=== PATIENT | female | born 1970 | race African-American/Black ===

== ENCOUNTER 2018-12-28 09:43 | Outpatient (CLI) | payer BC, OTHER ==
--- NOTE | 2018-12-28 12:40 | ULT ---
LEFT BREAST ULTRASOUND: HISTORY: Mass noted on screening mammography. COMPARISON: None. TECHNIQUE: Targeted sonographic imaging of the left breast is performed at the 9 o'clock position. Static image s were reviewed. After reading the static images, real-time imaging was performed in the presence of the radiologist. FINDINGS: Static and real-time images demonstrate a solid mass with a slight lobulation, measuring 0.8 x 1.3 x 0.9 cm. There does appear to be some posterior shadowing. This mass is felt to correspond to the mammographic finding. IMPRESSION: BI-RADS category 4-Suspicious finding. RECOMMENDATIONS: Ultrasound-guided biopsy of left breast mass is recommended. The results of the study were discussed with Dr. Mares, as well as the patient. CODE CR POS: SHALINI
--- NOTE | 2018-12-28 13:37 | MMO ---
Left Breast MAMMO Unilat Diag DDI LT+AMRITA. CLINICAL HISTORY: Patient is 48 years old and is seen for diagnostic exam. The patient has no family history of breast cancer. The patient has no personal history of cancer. VIEWS: The views performed were: left craniocaudal spot compression with tomosynthesis; left mediolateral oblique spot compression with tomosynthesis; and left mediolateral with tomosynthesis. FILMS COMPARED: The present examination has been compared to prior imaging studies performed at [facility] on 10/31/2018, and at [facility] on 12/28/2018. MAMMOGRAM FINDINGS: 1.4 cm mass does persist on additional views and is in the lower inner quadrant. US demontrates hypoechoic mass with shadowing. IMPRESSION: FINDING IN THE LEFT BREAST IS SUSPICIOUS. AN ULTRASOUND-GUIDED BREAST BIOPSY IS RECOMMENDED. ULTRASOUND GUIDED BIOSPY IS RECOMMENDED. THE RESULTS OF THIS EXAM WERE SENT TO THE PATIENT. ACR BI-RADS Category 4 - Suspicious abnormality - biopsy should be considered MAMMOGRAPHY NOTE: 1. A negative mammogram report should not delay a biopsy if a dominant of clinically suspicious mass is present. 2. Approximately 10% to 15% of breast cancers are not detected by mammography. 3. Adenosis and dense breasts may obscure an underlying neoplasm. Reported by: GIO BLAKELY MD Electonically Signed: [id number]
== END 2018-12-28 09:44 | disposition home or self-care (01) ==
LOC: BICMAMMO 09:43
PROVIDERS: ATTEND Family Medicine
DX: R92.8 Other abnormal and inconclusive findings on diagnostic imaging of breast (principal)
CPT/HCPCS: G0279

== ENCOUNTER → 2019-01-18 | Day surgery (SDC) | payer BC ==
--- NOTE | 2019-01-18 13:48 | MMO ---
Left Breast MAMMO Unilat Diag DDI LT. CLINICAL HISTORY: Patient is 48 years old and is seen for diagnostic exam. The patient has no family history of breast cancer. The patient has no personal history of cancer. VIEWS: The views performed were: left craniocaudal and left mediolateral oblique. FILMS COMPARED: The present examination has been compared to prior imaging studies performed at [facility] on 10/31/2018, and at [facility] on 12/28/2018. MAMMOGRAM FINDINGS: The breast is almost entirely fat. Left biopsy clip. IMPRESSION: FINDING IN THE LEFT BREAST IS CONFIRMED UTILIZING POST PROCEDURE MAMMOGRAM. THE RESULTS OF THIS EXAM WERE SENT TO THE PATIENT. MAMMOGRAPHY NOTE: 1. A negative mammogram report should not delay a biopsy if a dominant of clinically suspicious mass is present. 2. Approximately 10% to 15% of breast cancers are not detected by mammography. 3. Adenosis and dense breasts may obscure an underlying neoplasm. Reported by: Rohit MORTON Electonically Signed: [id number]
--- NOTE | 2019-01-18 16:06 | ULT ---
ULTRASOUND GUIDED LEFT BREAST MASS BIOPSY: 01/18/19 HISTORY: Breast mass. COMPARISON: Ultrasound and mammogram 12/28/18. FINDINGS: The patient is brought to the Ultrasound Suite where all questions were answered. Informed consent wa s obtained. Timeout performed. The patient's left breast was prepped and draped in a normal sterile fashion. 5 mL of lidocaine was i nstilled into the superficial and deep soft tissues. Using ultrasound guidance and a 14 gauge needle, a total of four cores were obtained. The patient tolerated the procedure well without complication. IMPRESSION: Technically successful ultrasound guided left breast mass biopsy. POS: OFF
== END ==
LOC: BICULT 12:19
PROVIDERS: ATTEND Family Medicine
PROC: 0HBU3ZX Excision of Left Breast, Percutaneous Approach, Diagnostic (ICD-10-PCS; principal; 2019-01-18)
DX: D24.2 Benign neoplasm of left breast (principal)
CPT/HCPCS: 19083; 88305

== ENCOUNTER 2021-03-24 22:14 | Emergency (ER) | payer BC ==
[2021-03-24] MEDS ORDERED: predniSONE 20 MG TAB ONE (23:12)
[2021-03-24] MEDS ORDERED: Famotidine 20 MG TAB ONE (23:12)
[2021-03-25 12:20] LABS: SARS-CoV-2 PCR by NAA Not Detected (NotDetected)
== END 2021-03-24 23:25 | disposition home or self-care (01) ==
LOC: ERS 22:14
DX: T78.40XA Allergy, unspecified, initial encounter (principal); L29.9 Pruritus, unspecified; R21 Rash and other nonspecific skin eruption; I10 Essential (primary) hypertension; H02.846 Edema of left eye, unspecified eyelid; H02.843 Edema of right eye, unspecified eyelid
CPT/HCPCS: 99283; J7512; U0003; U0005

== ENCOUNTER 2021-10-23 17:20 | Emergency (ER) | payer OTHER, BC ==
[2021-10-23] MEDS ORDERED: Ketorolac Tromethamine 30 MG/ML VIAL ONE (19:31)
== END 2021-10-23 20:05 | disposition home or self-care (01) ==
LOC: ERS 17:20
DX: S52.122A Displaced fracture of head of left radius, initial encounter for closed fracture (principal); W01.10XA Fall on same level from slipping, tripping and stumbling with subsequent striking against unspecified object, initial encounter; I10 Essential (primary) hypertension
CPT/HCPCS: 29105; 96372; J1885

== ENCOUNTER 2022-10-09 10:51 | Emergency (ER) | payer BC ==
[2022-10-09] MEDS ORDERED: Ketorolac Tromethamine 30 MG/ML VIAL ONE (11:09)
== END 2022-10-09 12:36 | disposition home or self-care (01) ==
LOC: ERS 10:51
DX: M17.11 Unilateral primary osteoarthritis, right knee (principal); I10 Essential (primary) hypertension; Z79.899 Other long term (current) drug therapy
CPT/HCPCS: 96372; J1885

== ENCOUNTER 2023-01-29 23:40 | Inpatient (IN) | payer BC ==
[2023-01-30] MEDS ORDERED: predniSONE 20 MG TAB ONE (01:25)
[2023-01-30 03:02] LABS: SARS-CoV-2 NAA Rapid Test Not Detected (NotDetected)
[2023-01-30 04:20] LABS: #Eosinphils 0.2 thou/uL (0.0-0.7); #Monocytes 0.2 thou/uL (0.11-0.59); #Neutrophils 8.5 thou/uL (1.40-6.50); %Basophils 0.2 % (0.0-1.0); %Eosinophils 1.5 % (0.0-10.0); %Lymphocytes 11.6 % (21.0-51.0); %Monocytes 2.4 % (0.0-10.0); %Neutrophils 83.9 % (42.0-75.0); Hematocrit 28.4 % (36.0-47.0); Mean Corpuscular HGB CONC 31.7 g/dL (32.0-36.0); Mean Corpuscular Hemoglobin 23.1 pg (27.0-31.0); Mean Corpuscular Volume 72.8 fl (78.0-98.0); Mean Platelet Volume 9.7 fL (7.4-10.4); Platelet Count 537 10x3/uL (130-400); RBC Distribution Width 18.7 % (11.5-14.5); White Blood Cell (WBC) Count 10.2 10x3/uL (4.8-10.8)
[2023-01-30 04:42] LABS: ALT (SGPT) 32 U/L (8-55); AST (SGOT) 34 U/L (5-34); Albumin 3.3 g/dL (3.5-5.0); Alkaline Phosphatase 73 U/L (40-110); Anion Gap 16 mmol/L (10-20); BUN (Urea Nitrogen) 4 mg/dL (9.8-20.1); Bilirubin, Total 0.4 mg/dL (0.2-1.2); Calc. Creatinine Clearance 0 mL/min (70-130); Calcium 9.4 mg/dL (7.8-10.44); Carbon Dioxide 23 mmol/L (22-29); Chloride 101 mmol/L (98-107); Estimated GFR 101; Glucose 104 mg/dL (70-105); Potassium 3.4 mmol/L (3.5-5.1); Protein, Total 9.3 g/dL (6.0-8.3); Sodium 137 mmol/L (136-145)
[2023-01-30 04:47] LABS: Anisocytosis SLIGHT = 6-15 cells HPF (0-5); CellaVision Operator ID lab.abc; Hypochromia SLIGHT = 6-15 cells HPF (0-5); Microcytosis SLIGHT = 6-15 cells HPF (0-5); Platelet Adequacy Comment Platelets Increased; Polychromasia SLIGHT = 2-3 cells HPF (0-2); Target Cells SLIGHT = 2-5 cells HPF (0-1)
[2023-01-30 04:54] LABS: Troponin I 0.033 ng/mL (< 0.028)
[2023-01-30] MEDS ORDERED: Labetalol HCl 100 MG/20 ML VIAL ONE (05:52)
[2023-01-30] MEDS ORDERED: LevoFLOXacin 750 mg/D5W 150 ml Premix Bag ONE (05:52)
[2023-01-30] MEDS ORDERED: Acetaminophen 325 MG TAB PO PRN (07:44)
[2023-01-30] MEDS ORDERED: Ondansetron PF 4 MG/2 ML Vial IVP PRN (07:44)
[2023-01-30] MEDS ORDERED: Potassium Chloride 20 MEQ TAB PO SCH (08:00)
[2023-01-30 08:02] LABS: Troponin I 0.028 ng/mL (< 0.028)
[2023-01-30 08:26] LABS: Magnesium 1.7 mg/dL (1.6-2.6)
[2023-01-30] MEDS ORDERED: Iopamidol-370 76% 500 ML MDV (1 ML CHARGE) ONE (08:49)
[2023-01-30 09:14] VITALS: BMI 37.0
[2023-01-30] MEDS: Famotidine 20 MG TAB PO SCH ×2 (10:16→20:56)
[2023-01-30 10:44] LABS: Troponin I 0.037 ng/mL (< 0.028)
[2023-01-31] MEDS ORDERED: Pantoprazole 40 MG VIAL IVP SCH (01:00)
[2023-01-31 01:14] LABS: #Eosinphils 0.1 thou/uL (0.0-0.7); #Monocytes 0.4 thou/uL (0.11-0.59); #Neutrophils 5.5 thou/uL (1.40-6.50); %Basophils 0.3 % (0.0-1.0); %Eosinophils 0.8 % (0.0-10.0); %Lymphocytes 29.9 % (21.0-51.0); %Monocytes 4.9 % (0.0-10.0); %Neutrophils 63.6 % (42.0-75.0); Hematocrit 26.6 % (36.0-47.0); Hemoglobin 8.4 g/dL (12.0-16.0); Mean Corpuscular HGB CONC 31.6 g/dL (32.0-36.0); Mean Corpuscular Hemoglobin 23.2 pg (27.0-31.0); Mean Corpuscular Volume 73.5 fl (78.0-98.0); Mean Platelet Volume 9.2 fL (7.4-10.4); Platelet Count 483 10x3/uL (130-400); RBC Distribution Width 18.5 % (11.5-14.5); Red Blood Cell (RBC) Count 3.62 mill/uL (4.20-5.40); White Blood Cell (WBC) Count 8.7 10x3/uL (4.8-10.8)
[2023-01-31] MEDS ORDERED: Morphine 4 MG/ML VIAL SLOW IVP SCH (01:30)
[2023-01-31 01:44] LABS: Troponin I 0.031 ng/mL (< 0.028)
[2023-01-31 01:54] LABS: Anion Gap 14 mmol/L (10-20); BUN (Urea Nitrogen) 7 mg/dL (9.8-20.1); Calc. Creatinine Clearance 141 mL/min (70-130); Calcium 9.6 mg/dL (7.8-10.44); Carbon Dioxide 24 mmol/L (22-29); Chloride 103 mmol/L (98-107); Estimated GFR 101; Glucose 91 mg/dL (70-105); Sodium 138 mmol/L (136-145)
[2023-01-31] MEDS ORDERED: Morphine 2 MG/ML VIAL SLOW IVP PRN (02:06)
[2023-01-31] MEDS ORDERED: LevoFLOXacin 500 mg/D5W 500 MG in Premix Bag 1 BAG IVPB SCH (08:00)
[2023-01-31] MEDS: Famotidine 20 MG TAB PO SCH (08:05)
[2023-01-31] MEDS ORDERED: Meloxicam 15 MG TAB PO SCH (09:00)
[2023-01-31] MEDS ORDERED: Hydroxychloroquine Sulfate 200 MG TAB PO SCH (09:00)
[2023-01-31] MEDS ORDERED: dilTIAZem CD 180 MG CAP PO SCH (09:00)
[2023-01-31] MEDS ORDERED: Potassium Chloride 20 MEQ TAB PO SCH (10:15)
[2023-01-31 12:03] VITALS: BP 139/65; TEMP 97.3
[2023-01-31] MEDS ORDERED: Apixaban 5 MG TAB PO SCH (21:00)
[2023-02-01] MEDS ORDERED: LevoFLOXacin 750 MG TAB PO SCH (06:00)
== END 2023-01-31 14:50 | disposition home or self-care (01) | DRG 176 ==
LOC: ERS 23:40 → 2NO 01-30 05:41
PROVIDERS: ADMIT Student in an Organized Health Care Education/Training Program; ATTEND Emergency Medicine
DX: I26.99 Other pulmonary embolism without acute cor pulmonale (principal); I10 Essential (primary) hypertension; M19.90 Unspecified osteoarthritis, unspecified site; K21.9 Gastro-esophageal reflux disease without esophagitis; D64.9 Anemia, unspecified; R77.8 Other specified abnormalities of plasma proteins; Z20.822 Contact with and (suspected) exposure to COVID-19; M32.9 Systemic lupus erythematosus, unspecified; E87.6 Hypokalemia; R59.1 Generalized enlarged lymph nodes; Z90.49 Acquired absence of other specified parts of digestive tract; Z98.51 Tubal ligation status
CPT/HCPCS: 36415; 71045; 71275; 80048; 80053; 83735; 83880; 84484; 85025; 87081; 87430; 93005; 93010; 93306; 93970; 96365; 96372; 96375; C9113; J1650; J1956; J2270; J2272; J2405; J7512; Q9967

== ENCOUNTER 2023-02-04 07:10 | Observation (INO) | payer BC ==
[2023-02-04 08:10] LABS: #Eosinphils 0.2 thou/uL (0.0-0.7); #Monocytes 0.5 thou/uL (0.11-0.59); #Neutrophils 7.5 thou/uL (1.40-6.50); %Basophils 0.2 % (0.0-1.0); %Eosinophils 1.7 % (0.0-10.0); %Lymphocytes 11.5 % (21.0-51.0); %Monocytes 5.7 % (0.0-10.0); %Neutrophils 80.5 % (42.0-75.0); Hematocrit 29.1 % (36.0-47.0); Hemoglobin 9.1 g/dL (12.0-16.0); Mean Corpuscular HGB CONC 31.3 g/dL (32.0-36.0); Mean Corpuscular Hemoglobin 23.5 pg (27.0-31.0); Mean Platelet Volume 9.3 fL (7.4-10.4); Platelet Count 507 10x3/uL (130-400); RBC Distribution Width 19.7 % (11.5-14.5); Red Blood Cell (RBC) Count 3.88 mill/uL (4.20-5.40); White Blood Cell (WBC) Count 9.4 10x3/uL (4.8-10.8)
[2023-02-04 08:35] LABS: ALT (SGPT) 82 U/L (8-55); AST (SGOT) 62 U/L (5-34); Albumin 3.2 g/dL (3.5-5.0); Alkaline Phosphatase 296 U/L (40-110); Anion Gap 9 mmol/L (10-20); BUN (Urea Nitrogen) 4 mg/dL (9.8-20.1); Bilirubin, Total 0.6 mg/dL (0.2-1.2); Calc. Creatinine Clearance 0 mL/min (70-130); Calcium 9.2 mg/dL (7.8-10.44); Carbon Dioxide 26 mmol/L (22-29); Chloride 99 mmol/L (98-107); Estimated GFR 99; Globulin 5.3 g/dL (2.4-3.5); Glucose 96 mg/dL (70-105); Magnesium 1.6 mg/dL (1.6-2.6); Potassium 3.2 mmol/L (3.5-5.1); Protein, Total 8.5 g/dL (6.0-8.3); Sodium 131 mmol/L (136-145)
[2023-02-04 08:38] LABS: Troponin I 0.027 ng/mL (< 0.028)
[2023-02-04] MEDS ORDERED: Ondansetron PF 4 MG/2 ML Vial ONE (09:05)
[2023-02-04] MEDS ORDERED: Morphine 4 MG/ML VIAL ONE (09:05)
[2023-02-04] MEDS ORDERED: Potassium Chloride 20 MEQ TAB ONE (09:16)
[2023-02-04] MEDS ORDERED: Magnesium 2 GM/50 ML(in water) 2 GM in Premix Bag 1 BAG IVPB SCH (09:30)
[2023-02-04] MEDS ORDERED: Iopamidol 370 76% 100 ML VIAL ONE (11:15)
[2023-02-04 11:50] LABS: Troponin I 0.037 ng/mL (< 0.028)
[2023-02-04 12:08] VITALS: BMI 36.8
[2023-02-04] MEDS ORDERED: Ondansetron PF 4 MG/2 ML Vial IVP PRN (12:46)
[2023-02-04] MEDS ORDERED: Ondansetron ODT 4 MG TAB PO PRN (12:46)
[2023-02-04] MEDS ORDERED: Acetaminophen 325 MG TAB PO PRN (12:46)
[2023-02-04] MEDS: HYDROcodone/Acetaminophen 5/325 mg Tablet PO PRN ×2 (13:25→22:55)
[2023-02-04 14:09] LABS: Troponin I 0.028 ng/mL (< 0.028)
[2023-02-04] MEDS ORDERED: Ketorolac Tromethamine 30 MG/ML VIAL IVP SCH (15:00)
[2023-02-04 15:35] LABS: Bacteria/HPF None Seen HPF (None Seen); Bilirubin Negative (Negative); Blood, Urine Negative (Negative); Clarity Clear (Clear); Glucose, Urine (Dipstick) Normal (Negative); Ketone, Urine Negative (Negative); Leukocyte Negative Leu/uL (Negative); Nitrite Negative (Negative); Protein, Urine (Dipstick) Negative (Neg-Trace); RBC/HPF 0-3 HPF (0-3); Specific Gravity, Urine 1.041 (1.002-1.036); Squamous Epithelial 0-3 HPF (0-3); WBC/HPF 0-3 HPF (0-3); pH, Urine 6.5 (5.0-9.0)
[2023-02-04 16:46] LABS: Troponin I 0.026 ng/mL (< 0.028)
[2023-02-04 17:41] LABS: Iron 13 ug/dL (50-170); Iron Binding Capacity, Total 219 mcg/dL (265-497)
[2023-02-04 18:07] LABS: Troponin I 0.028 ng/mL (< 0.028)
[2023-02-04] MEDS: Colchicine 0.6 MG TAB PO SCH (20:26)
[2023-02-05] MEDS: HYDROcodone/Acetaminophen 5/325 mg Tablet PO PRN ×2 (04:42→09:14)
[2023-02-05 05:02] LABS: #Eosinphils 0.2 thou/uL (0.0-0.7); #Monocytes 0.7 thou/uL (0.11-0.59); #Neutrophils 10.5 thou/uL (1.40-6.50); %Basophils 0.2 % (0.0-1.0); %Eosinophils 1.4 % (0.0-10.0); %Lymphocytes 11.7 % (21.0-51.0); %Monocytes 5.5 % (0.0-10.0); %Neutrophils 80.7 % (42.0-75.0); Hematocrit 31.1 % (36.0-47.0); Hemoglobin 9.7 g/dL (12.0-16.0); Mean Corpuscular HGB CONC 31.2 g/dL (32.0-36.0); Mean Corpuscular Hemoglobin 23.5 pg (27.0-31.0); Mean Corpuscular Volume 75.5 fl (78.0-98.0); Mean Platelet Volume 9.6 fL (7.4-10.4); Platelet Count 419 10x3/uL (130-400); RBC Distribution Width 20.7 % (11.5-14.5); Red Blood Cell (RBC) Count 4.12 mill/uL (4.20-5.40)
[2023-02-05 08:15] LABS: Anion Gap 13 mmol/L (10-20); BUN (Urea Nitrogen) 7 mg/dL (9.8-20.1); Calc. Creatinine Clearance 133 mL/min (70-130); Calcium 9.3 mg/dL (7.8-10.44); Carbon Dioxide 24 mmol/L (22-29); Cardiac Risk 2.9 (Less than 4.5); Chloride 100 mmol/L (98-107); Cholesterol 101 mg/dl (< 200 Desired); Estimated GFR 94; Glucose 102 mg/dL (70-105); HDL Cholesterol 35 mg/dL (>60 Neg Risk); LDL Cholesterol, Calculated 54 mg/dL; Potassium 3.8 mmol/L (3.5-5.1); Sodium 133 mmol/L (136-145); Triglycerides 59 mg/dL (Less than 150)
[2023-02-05] MEDS ORDERED: Hydroxychloroquine Sulfate 200 MG TAB PO SCH (09:00)
[2023-02-05] MEDS ORDERED: dilTIAZem CD 180 MG CAP PO SCH (09:00)
[2023-02-05] MEDS ORDERED: Non-Formulary Item 1 EACH (Diltiazem Hcl [Diltiazem 24hr Er] 180 MG Cap.Sa.24h) PO SCH (09:00)
[2023-02-05] MEDS: Colchicine 0.6 MG TAB PO SCH (09:14)
[2023-02-05 09:47] LABS: INR-International Normal Ratio 1.5
[2023-02-05 09:48] LABS: PTT 45.7 sec (22.9-36.1)
[2023-02-05] MEDS ORDERED: Ketorolac Tromethamine 30 MG/ML VIAL IVP SCH (11:00)
[2023-02-05 11:37] VITALS: BP 97/53; TEMP 99.7
[2023-02-05 18:40] LABS: Cardiolipin IgA Ab 7.3 APL-U/mL (<14 Negative); Cardiolipin IgG Ab 4.2 GPL-U/mL (<10 Negative); Cardiolipin IgM Ab 7.1 MPL-U/mL (<10 Negative); EliA APS New Method **** NEW METHOD ****; beta-2-Glycoprotein I IgA Ab 5.9 U/mL (<7 Negative); beta-2-Glycoprotein I IgG Ab 3.8 U/mL (<7 Negative); beta-2-Glycoprotein I IgM Abs 3.8 U/mL (<7 Negative)
[2023-02-08 13:02] LABS: DRVVT Confirm 67.7; HEX PHOS LA Tube 1 58.8 SEC; HEX PHOS LA Tube 2 44.6 SEC; Hexagonal Phospholipid Neut 14.2 SEC (0-8.0)
== END 2023-02-05 17:00 | disposition home or self-care (01) ==
LOC: ERS 07:10 → 2SW 09:47
PROVIDERS: ADMIT Internal Medicine; ATTEND Internal Medicine
DX: R07.89 Other chest pain (principal); I26.99 Other pulmonary embolism without acute cor pulmonale; R59.1 Generalized enlarged lymph nodes; D64.9 Anemia, unspecified; E87.6 Hypokalemia; E87.1 Hypo-osmolality and hyponatremia; I08.8 Other rheumatic multiple valve diseases; I10 Essential (primary) hypertension; M19.90 Unspecified osteoarthritis, unspecified site; R94.5 Abnormal results of liver function studies; E66.9 Obesity, unspecified; Z68.36 Body mass index [BMI] 36.0-36.9, adult; Z90.49 Acquired absence of other specified parts of digestive tract; Z79.899 Other long term (current) drug therapy; Z86.711 Personal history of pulmonary embolism; Z79.01 Long term (current) use of anticoagulants
CPT/HCPCS: 36415; 71045; 71275; 80048; 80053; 80061; 81001; 82728; 83540; 83550; 83605; 83615; 83735; 83880; 84484; 85025; 85598; 85610; 85613; 85730; 86146; 86147; 93005; 93306; 94760; 96365; 96372; 96375; 96376; G0378; J1650; J1885; J2270; J2405; J3475; Q9967

== ENCOUNTER 2023-02-10 23:05 | Inpatient (IN) | payer BC ==
[2023-02-11 00:06] LABS: #Eosinphils 0.2 thou/uL (0.0-0.7); #Monocytes 0.8 thou/uL (0.11-0.59); %Basophils 0.4 % (0.0-1.0); %Eosinophils 1.6 % (0.0-10.0); %Lymphocytes 12.1 % (21.0-51.0); %Monocytes 6.8 % (0.0-10.0); %Neutrophils 78.6 % (42.0-75.0); Hematocrit 23.3 % (36.0-47.0); Hemoglobin 7.6 g/dL (12.0-16.0); Mean Corpuscular HGB CONC 32.6 g/dL (32.0-36.0); Mean Corpuscular Hemoglobin 23.5 pg (27.0-31.0); Mean Corpuscular Volume 71.9 fl (78.0-98.0); Mean Platelet Volume 9.5 fL (7.4-10.4); Platelet Count 591 10x3/uL (130-400); RBC Distribution Width 19.1 % (11.5-14.5); Red Blood Cell (RBC) Count 3.24 mill/uL (4.20-5.40); White Blood Cell (WBC) Count 11.4 10x3/uL (4.8-10.8)
[2023-02-11 00:16] LABS: Delete Auto Diff?? NO
[2023-02-11] MEDS ORDERED: Morphine 4 MG/ML VIAL ONE (00:20)
[2023-02-11] MEDS ORDERED: Ondansetron PF 4 MG/2 ML Vial ONE (00:20)
[2023-02-11 00:26] LABS: ALT (SGPT) 21 U/L (8-55); AST (SGOT) 20 U/L (5-34); Albumin 3.1 g/dL (3.5-5.0); Alkaline Phosphatase 129 U/L (40-110); Anion Gap 12 mmol/L (10-20); BUN (Urea Nitrogen) 4 mg/dL (9.8-20.1); Bilirubin, Total 0.4 mg/dL (0.2-1.2); Calc. Creatinine Clearance 0 mL/min (70-130); Calcium 9.5 mg/dL (7.8-10.44); Carbon Dioxide 24 mmol/L (22-29); Chloride 102 mmol/L (98-107); Estimated GFR 99; Globulin 5.6 g/dL (2.4-3.5); Glucose 120 mg/dL (70-105); Lipase 16 U/L (8-78); Potassium 3.1 mmol/L (3.5-5.1); Protein, Total 8.7 g/dL (6.0-8.3); Sodium 135 mmol/L (136-145)
[2023-02-11 00:29] LABS: Troponin I 0.041 ng/mL (< 0.028)
[2023-02-11 00:43] LABS: Anisocytosis MODERATE=16-30 cells HPF (0-5); CellaVision Operator ID LAB.JMM; Macrocytosis SLIGHT = 6-15 cells HPF (0-5); Platelet Adequacy Comment Platelets Normal; Polychromasia SLIGHT = 2-3 cells HPF (0-2); Schistocytes SLIGHT = 2-5 cells HPF (0-1); Target Cells SLIGHT = 2-5 cells HPF (0-1)
[2023-02-11] MEDS ORDERED: Lidocaine 2% Viscous Solution 10 ML, Aluminum & Magnesium Hydroxide 30 ML SSW SCH (00:45)
[2023-02-11 01:22] LABS: INR-International Normal Ratio 1.2; Prothrombin Time 15.2 sec (12.0-14.7)
[2023-02-11] MEDS ORDERED: Ondansetron ODT 4 MG TAB SL PRN (02:15)
[2023-02-11] MEDS ORDERED: Ondansetron PF 4 MG/2 ML Vial IVP PRN (02:15)
[2023-02-11] MEDS ORDERED: Acetaminophen 325 MG TAB PO PRN (02:15)
[2023-02-11 02:41] VITALS: BMI 35.7
[2023-02-11] MEDS ORDERED: Morphine 2 MG/ML VIAL SLOW IVP SCH (02:45)
[2023-02-11] MEDS ORDERED: Famotidine 20 MG TAB PO PRN (03:42)
[2023-02-11] MEDS ORDERED: Electrolyte Replacement Protocol 1 EACH FS SCH (05:00)
[2023-02-11] MEDS ORDERED: Ketorolac Tromethamine 30 MG/ML VIAL IVP SCH (05:15)
[2023-02-11 06:36] LABS: Hemoglobin 8.4 g/dL (12.0-16.0); Mean Corpuscular HGB CONC 31.1 g/dL (32.0-36.0); Mean Corpuscular Hemoglobin 23.3 pg (27.0-31.0); Mean Platelet Volume 10.2 fL (7.4-10.4); Platelet Count 699 10x3/uL (130-400); RBC Distribution Width 19.4 % (11.5-14.5); Red Blood Cell (RBC) Count 3.61 mill/uL (4.20-5.40); White Blood Cell (WBC) Count 12.2 10x3/uL (4.8-10.8)
[2023-02-11 06:51] LABS: Mean Corpuscular Volume 74.8 fl (78.0-98.0)
[2023-02-11 06:57] LABS: Magnesium 1.7 mg/dL (1.6-2.6)
[2023-02-11 07:02] LABS: Troponin I 0.024 ng/mL (< 0.028)
[2023-02-11] MEDS: Morphine 4 MG/ML VIAL SLOW IVP PRN ×3 (07:26→20:09)
[2023-02-11] MEDS ORDERED: Magnesium 2 GM/50 ML(in water) 2 GM in Premix Bag 1 BAG IVPB SCH (08:00)
[2023-02-11] MEDS ORDERED: Potassium Chloride 20 MEQ TAB PO SCH (08:00)
[2023-02-11] MEDS: Hydroxychloroquine Sulfate 200 MG TAB PO SCH (08:20)
[2023-02-11] MEDS: dilTIAZem CD 180 MG CAP PO SCH (08:21)
[2023-02-11] MEDS ORDERED: CeleCOXIB 100 MG CAP PO SCH (09:00)
[2023-02-11 13:35] LABS: Hematocrit 27.8 % (36.0-47.0); Hemoglobin 8.7 g/dL (12.0-16.0); Mean Corpuscular HGB CONC 31.3 g/dL (32.0-36.0); Mean Corpuscular Hemoglobin 23.3 pg (27.0-31.0); Mean Corpuscular Volume 74.5 fl (78.0-98.0); Mean Platelet Volume 9.9 fL (7.4-10.4); Platelet Count 626 10x3/uL (130-400); RBC Distribution Width 19.3 % (11.5-14.5); Red Blood Cell (RBC) Count 3.73 mill/uL (4.20-5.40)
[2023-02-11 14:15] LABS: Troponin I 0.022 ng/mL (< 0.028)
[2023-02-11] MEDS ORDERED: Iopamidol 370 76% 100 ML VIAL ONE (14:30)
[2023-02-11] MEDS ORDERED: Ketorolac Tromethamine 30 MG/ML VIAL IVP PRN (15:38)
[2023-02-11] MEDS ORDERED: Iron Sucrose Complex 200 MG in Sodium Chloride 0.9% 100 ML IVPB SCH (15:45)
[2023-02-11] MEDS ORDERED: Iron, Sodium Ferric Gluconate 250 MG in Sodium Chloride 0.9% 250 ML 250 ML IVPB SCH (17:15)
[2023-02-11 22:06] LABS: Hematocrit 22.8 % (36.0-47.0); Hemoglobin 7.4 g/dL (12.0-16.0); Mean Corpuscular HGB CONC 32.5 g/dL (32.0-36.0); Mean Corpuscular Hemoglobin 23.5 pg (27.0-31.0); Mean Corpuscular Volume 72.4 fl (78.0-98.0); Mean Platelet Volume 9.8 fL (7.4-10.4); Platelet Count 585 10x3/uL (130-400); RBC Distribution Width 18.9 % (11.5-14.5); Red Blood Cell (RBC) Count 3.15 mill/uL (4.20-5.40); White Blood Cell (WBC) Count 19.8 10x3/uL (4.8-10.8)
[2023-02-12] MEDS ORDERED: Sevoflurane 250 ML INH ANEST BOTTLE ONE (05:20)
[2023-02-12] MEDS ORDERED: EPINEPHrine 1 MG/ML AMP ONE (07:18)
[2023-02-12] MEDS ORDERED: Bupivacaine PF 0.5% 30 ML VIAL ONE (07:18)
[2023-02-12] MEDS ORDERED: Protamine Sulfate 50 MG/5 ML VIAL ONE (07:23)
[2023-02-12] MEDS ORDERED: Lidocaine 2% 6 ML (Jelly) SYR ONE (07:23)
[2023-02-12] MEDS ORDERED: Albumin 5% 0 ML ONE (07:23)
[2023-02-12] MEDS ORDERED: Norepinephrine 4 MG/4 ML VIAL ONE (07:23)
[2023-02-12] MEDS ORDERED: Vasopressin 20 UNITS/ML VIAL ONE (07:23)
[2023-02-12] MEDS ORDERED: Phenylephrine 10 MG/ML VIAL ONE (07:23)
[2023-02-12] MEDS ORDERED: PHENYLEPHRINE-NS 100 MCG/ML 10 ML SYRINGE ONE (07:30)
[2023-02-12] MEDS ORDERED: Esmolol 100 MG/10 ML VIAL ONE ×2 (07:30→09:11)
[2023-02-12] MEDS ORDERED: Ondansetron PF 4 MG/2 ML Vial ONE (07:30)
[2023-02-12] MEDS ORDERED: Dexamethasone 20 MG/5 ML VIAL ONE (07:30)
[2023-02-12] MEDS ORDERED: Rocuronium Bromide 10 MG/ML (10ML VIAL) ONE (07:30)
[2023-02-12] MEDS ORDERED: ePHEDrine Sulfate 50 MG/10 ML VIAL ONE (07:30)
[2023-02-12] MEDS ORDERED: Fentanyl 250 MCG/5 ML VIAL ONE (07:32)
[2023-02-12] MEDS ORDERED: Ketamine 50 MG/ML (10ML VIAL) ONE (07:32)
[2023-02-12] MEDS ORDERED: Midazolam HCl 2 mg/2 ml Vial ONE (07:32)
[2023-02-12] MEDS ORDERED: CEFAZOLIN 2 GM VIAL ONE (07:46)
[2023-02-12] MEDS ORDERED: Sodium Chloride 0.9% 100 ML ONE (07:46)
[2023-02-12] MEDS ORDERED: SUGAMMADEX SODIUM 200 MG/2 ML VIAL ONE (08:56)
[2023-02-12] MEDS ORDERED: Ipratropium/Albuterol 3 ML NEB ONE (09:13)
[2023-02-12] MEDS ORDERED: Fentanyl 100 MCG/2 ML VIAL SLOW IVP PRN (09:20)
[2023-02-12] MEDS ORDERED: Ondansetron HCl/PF 4 MG/2 ML Vial IVP PRN (09:22)
[2023-02-12] MEDS ORDERED: Ipratropium/Albuterol 3 ML NEB NEB SCH (09:30)
[2023-02-12] MEDS: Hydroxychloroquine Sulfate 200 MG TAB PO SCH (10:23)
[2023-02-12] MEDS: dilTIAZem CD 180 MG CAP PO SCH (11:15)
[2023-02-12 12:48] LABS: RBC Count-Automated (BF) 268153 /cu.mm; WBC/Nucleated-Auto (BF) 2660 /cu.mm
[2023-02-12 13:00] LABS: BF Color Red; Body Fluid Source Pericardial Fluid; Clarity Cloudy/Turbid (Clear); Tube # EDTA
[2023-02-12 13:01] LABS: BF Segmented Neutrophils 73 %; Cell Count Non Hematic 21 %; Lymphocytes 6 %
[2023-02-12] MEDS: Morphine 4 MG/ML VIAL SLOW IVP PRN ×2 (14:49→21:19)
[2023-02-12] MEDS: traMADol HCl 50 MG TAB PO PRN ×2 (16:27→23:03)
[2023-02-13 04:50] LABS: #Monocytes 0.7 thou/uL (0.11-0.59); #Neutrophils 16.6 thou/uL (1.40-6.50); %Basophils 0.1 % (0.0-1.0); %Lymphocytes 9.2 % (21.0-51.0); %Monocytes 3.8 % (0.0-10.0); %Neutrophils 86.2 % (42.0-75.0); Hematocrit 26.2 % (36.0-47.0); Hemoglobin 8.3 g/dL (12.0-16.0); Mean Corpuscular HGB CONC 31.7 g/dL (32.0-36.0); Mean Corpuscular Hemoglobin 23.8 pg (27.0-31.0); Mean Corpuscular Volume 75.1 fl (78.0-98.0); Mean Platelet Volume 9.8 fL (7.4-10.4); Platelet Count 538 10x3/uL (130-400); RBC Distribution Width 18.7 % (11.5-14.5); Red Blood Cell (RBC) Count 3.49 mill/uL (4.20-5.40); White Blood Cell (WBC) Count 19.2 10x3/uL (4.8-10.8)
[2023-02-13 05:11] LABS: Anion Gap 9 mmol/L (10-20); BUN (Urea Nitrogen) 10 mg/dL (9.8-20.1); Calc. Creatinine Clearance 133 mL/min (70-130); Calcium 9.9 mg/dL (7.8-10.44); Carbon Dioxide 25 mmol/L (22-29); Chloride 103 mmol/L (98-107); Estimated GFR 97; Glucose 131 mg/dL (70-105); Potassium 4.2 mmol/L (3.5-5.1); Sodium 133 mmol/L (136-145)
[2023-02-13] MEDS: dilTIAZem CD 180 MG CAP PO SCH (10:03)
[2023-02-13] MEDS: Hydroxychloroquine Sulfate 200 MG TAB PO SCH (10:11)
[2023-02-13] MEDS ORDERED: Doxycycline 100 MG CAP PO SCH (10:45)
[2023-02-13] MEDS: cefTRIAXone\\ROCEPHIN 1 GM in Sodium Chloride 0.9% 100 ML IVPB SCH (11:37)
[2023-02-13 16:31] LABS: Legionella Urinary Ag Negative (Negative); Strep pneumo Urine Ag NEGATIVE (NEGATIVE)
[2023-02-13] MEDS: Doxycycline 100 MG CAP PO SCH (20:36)
[2023-02-13] MEDS: Metoprolol Tartrate 25 MG TAB PO SCH (20:36)
[2023-02-13] MEDS: traMADol HCl 50 MG TAB PO PRN (20:36)
[2023-02-14 05:33] LABS: #Monocytes 0.9 thou/uL (0.11-0.59); #Neutrophils 13.9 thou/uL (1.40-6.50); %Basophils 0.1 % (0.0-1.0); %Eosinophils 0.1 % (0.0-10.0); %Lymphocytes 15.4 % (21.0-51.0); %Monocytes 5.1 % (0.0-10.0); %Neutrophils 78.6 % (42.0-75.0); Hemoglobin 8.4 g/dL (12.0-16.0); Mean Corpuscular HGB CONC 31.1 g/dL (32.0-36.0); Mean Corpuscular Hemoglobin 23.7 pg (27.0-31.0); Mean Corpuscular Volume 76.3 fl (78.0-98.0); Mean Platelet Volume 9.9 fL (7.4-10.4); Platelet Count 615 10x3/uL (130-400); RBC Distribution Width 19.6 % (11.5-14.5); Red Blood Cell (RBC) Count 3.54 mill/uL (4.20-5.40); White Blood Cell (WBC) Count 17.7 10x3/uL (4.8-10.8)
[2023-02-14 06:01] LABS: Anion Gap 10 mmol/L (10-20); BUN (Urea Nitrogen) 16 mg/dL (9.8-20.1); CRP (Inflammatory) 10.85 mg/dL (= or < 0.5); Calc. Creatinine Clearance 134 mL/min (70-130); Calcium 9.9 mg/dL (7.8-10.44); Carbon Dioxide 25 mmol/L (22-29); Chloride 104 mmol/L (98-107); Estimated GFR 99; Glucose 106 mg/dL (70-105); Potassium 4.1 mmol/L (3.5-5.1); Sodium 135 mmol/L (136-145)
[2023-02-14] MEDS: dilTIAZem CD 120 MG CAP PO SCH (08:40)
[2023-02-14] MEDS: Doxycycline 100 MG CAP PO SCH ×2 (08:40→20:59)
[2023-02-14] MEDS: Metoprolol Tartrate 25 MG TAB PO SCH ×2 (08:41→20:57)
[2023-02-14] MEDS: Hydroxychloroquine Sulfate 200 MG TAB PO SCH (08:42)
[2023-02-14] MEDS: cefTRIAXone\\ROCEPHIN 1 GM in Sodium Chloride 0.9% 100 ML IVPB SCH (09:52)
[2023-02-14] MEDS ORDERED: Polyethylene Glycol 3350 17 GM Packet PO SCH (12:30)
[2023-02-14] MEDS: Senokot S 8.6-50 MG TAB PO SCH (21:00)
[2023-02-15 08:49] VITALS: BP 122/64; TEMP 98.1
[2023-02-15] MEDS: cefTRIAXone\\ROCEPHIN 1 GM in Sodium Chloride 0.9% 100 ML IVPB SCH (09:12)
[2023-02-15] MEDS: Metoprolol Tartrate 25 MG TAB PO SCH (09:14)
[2023-02-15] MEDS: Senokot S 8.6-50 MG TAB PO SCH (09:14)
[2023-02-15] MEDS: dilTIAZem CD 120 MG CAP PO SCH (09:15)
[2023-02-15] MEDS: Doxycycline 100 MG CAP PO SCH (09:15)
[2023-02-15] MEDS: Hydroxychloroquine Sulfate 200 MG TAB PO SCH (09:17)
== END 2023-02-15 11:22 | disposition home or self-care (01) | DRG 270 ==
LOC: ERS 23:05 → 2SW 02-11 01:06
PROVIDERS: ADMIT Internal Medicine Nephrology; ATTEND Hospitalist
PROC: 0W9D0ZZ Drainage of Pericardial Cavity, Open Approach (ICD-10-PCS; principal; 2023-02-12)
PROC: 07B70ZX Excision of Thorax Lymphatic, Open Approach, Diagnostic (ICD-10-PCS; 2023-02-12)
PROC: 30233N1 Transfusion of Nonautologous Red Blood Cells into Peripheral Vein, Percutaneous Approach (ICD-10-PCS; 2023-02-12)
DX: I31.39 Other pericardial effusion (noninflammatory) (principal); J18.9 Pneumonia, unspecified organism; D62 Acute posthemorrhagic anemia; I10 Essential (primary) hypertension; M19.90 Unspecified osteoarthritis, unspecified site; I44.4 Left anterior fascicular block; I45.10 Unspecified right bundle-branch block; M32.9 Systemic lupus erythematosus, unspecified; D64.9 Anemia, unspecified; I31.2 Hemopericardium, not elsewhere classified; R59.0 Localized enlarged lymph nodes; R59.1 Generalized enlarged lymph nodes; I07.1 Rheumatic tricuspid insufficiency; Z86.711 Personal history of pulmonary embolism; Z90.49 Acquired absence of other specified parts of digestive tract; Z98.51 Tubal ligation status; Z79.01 Long term (current) use of anticoagulants; Z79.899 Other long term (current) drug therapy
CPT/HCPCS: 36415; 36430; 70470; 71045; 74177; 80048; 80053; 83690; 83735; 84145; 84155; 84484; 85025; 85027; 85060; 85610; 85730; 86140; 86850; 86900; 86901; 87040; 87070; 87205; 87449; 87899; 88112; 88305; 88341; 88342; 89051; 93005; 93306; 93970; 96374; 96375; J0171; J0696; J1100; J1650; J1885; J2250; J2270; J2272; J2370; J2405; J2720; J2916; J3010; J3475; J3490; J7050; J7620; P9016; P9045; Q9967; S0020

== ENCOUNTER 2023-02-20 23:09 | Emergency (ER) | payer BC ==
[2023-02-21] MEDS ORDERED: diphenhydrAMINE 50 MG CAP ONE (02:37)
== END 2023-02-21 03:00 | disposition home or self-care (01) ==
LOC: ERS 23:09
DX: R21 Rash and other nonspecific skin eruption (principal); I10 Essential (primary) hypertension
CPT/HCPCS: 99282

== ENCOUNTER 2023-02-25 19:27 | Emergency (ER) | payer BC ==
[2023-02-25] MEDS ORDERED: hydrOXYzine 25 MG TAB ONE (21:40)
[2023-02-25] MEDS ORDERED: Dexamethasone 10 MG/ML VIAL ONE (21:40)
[2023-02-25 22:18] LABS: #Basophils 0.1 thou/uL (0.0-0.2); #Eosinphils 0.5 thou/uL (0.0-0.7); #Monocytes 0.6 thou/uL (0.11-0.59); #Neutrophils 9.3 thou/uL (1.40-6.50); %Basophils 0.4 % (0.0-1.0); %Eosinophils 3.5 % (0.0-10.0); %Lymphocytes 21.6 % (21.0-51.0); %Monocytes 4.4 % (0.0-10.0); %Neutrophils 69.9 % (42.0-75.0); Hematocrit 42.4 % (36.0-47.0); Hemoglobin 13.2 g/dL (12.0-16.0); Mean Corpuscular HGB CONC 31.1 g/dL (32.0-36.0); Mean Corpuscular Hemoglobin 23.8 pg (27.0-31.0); Mean Corpuscular Volume 76.5 fl (78.0-98.0); Mean Platelet Volume 10.5 fL (7.4-10.4); Platelet Count 428 10x3/uL (130-400); RBC Distribution Width 22.1 % (11.5-14.5); Red Blood Cell (RBC) Count 5.54 mill/uL (4.20-5.40); White Blood Cell (WBC) Count 13.3 10x3/uL (4.8-10.8)
[2023-02-25 22:35] LABS: INR-International Normal Ratio 1.1; PTT 29.9 sec (22.9-36.1); Prothrombin Time 14.3 sec (12.0-14.7)
[2023-02-25 22:44] LABS: ALT (SGPT) 20 U/L (8-55); AST (SGOT) 18 U/L (5-34); Alkaline Phosphatase 97 U/L (40-110); Anion Gap 18 mmol/L (10-20); BUN (Urea Nitrogen) 13 mg/dL (9.8-20.1); Bilirubin, Total 0.3 mg/dL (0.2-1.2); Calc. Creatinine Clearance 0 mL/min (70-130); Calcium 10.5 mg/dL (7.8-10.44); Carbon Dioxide 21 mmol/L (22-29); Chloride 105 mmol/L (98-107); Estimated GFR 80; Glucose 92 mg/dL (70-105); Potassium 3.9 mmol/L (3.5-5.1); Sodium 140 mmol/L (136-145)
== END 2023-02-25 23:04 | disposition home or self-care (01) ==
LOC: ERS 19:27
DX: L50.9 Urticaria, unspecified (principal); I10 Essential (primary) hypertension
CPT/HCPCS: 36415; 80053; 85025; 85610; 85730; 96372; 99283; J1100

== ENCOUNTER 2023-03-01 13:19 | Outpatient (CLI) | payer BC | END 2023-03-01 13:20 | disposition home or self-care (01) | LOC: RAD 13:19 | PROVIDERS: ATTEND Thoracic Surgery (Cardiothoracic Vascular Surgery) | DX: I31.9 Disease of pericardium, unspecified (principal) | CPT/HCPCS: 71046 ==

== ENCOUNTER 2023-05-05 08:56 | Emergency (ER) | payer BC ==
[2023-05-05] MEDS ORDERED: traMADol HCl 50 MG TAB ONE (10:53)
[2023-05-05 12:06] LABS: #Eosinphils 0.1 thou/uL (0.0-0.7); #Monocytes 0.4 thou/uL (0.11-0.59); #Neutrophils 3.8 thou/uL (1.40-6.50); %Basophils 0.5 % (0.0-1.0); %Eosinophils 1.5 % (0.0-10.0); %Lymphocytes 29.3 % (21.0-51.0); %Monocytes 6.5 % (0.0-10.0); Hematocrit 36.5 % (36.0-47.0); Hemoglobin 11.3 g/dL (12.0-16.0); Mean Corpuscular Hemoglobin 26.4 pg (27.0-31.0); Mean Corpuscular Volume 85.3 fl (78.0-98.0); Mean Platelet Volume 9.7 fL (7.4-10.4); Platelet Count 430 10x3/uL (130-400); Red Blood Cell (RBC) Count 4.28 mill/uL (4.20-5.40); White Blood Cell (WBC) Count 6.2 10x3/uL (4.8-10.8)
[2023-05-05 12:31] LABS: ALT (SGPT) 29 U/L (8-55); AST (SGOT) 26 U/L (5-34); Albumin 4.5 g/dL (3.5-5.0); Alkaline Phosphatase 122 U/L (40-110); Anion Gap 16 mmol/L (10-20); BUN (Urea Nitrogen) 8 mg/dL (9.8-20.1); Bilirubin, Total 0.4 mg/dL (0.2-1.2); Calc. Creatinine Clearance 0 mL/min (70-130); Calcium 10.1 mg/dL (7.8-10.44); Carbon Dioxide 25 mmol/L (22-29); Chloride 105 mmol/L (98-107); Estimated GFR 96; Globulin 4.4 g/dL (2.4-3.5); Glucose 88 mg/dL (70-105); Potassium 3.9 mmol/L (3.5-5.1); Protein, Total 8.9 g/dL (6.0-8.3); Sodium 142 mmol/L (136-145)
[2023-05-05 12:33] LABS: Troponin I 0.014 ng/mL (< 0.028)
== END 2023-05-05 14:21 | disposition home or self-care (01) ==
LOC: ERS 08:56
DX: M17.0 Bilateral primary osteoarthritis of knee (principal); M19.012 Primary osteoarthritis, left shoulder; I10 Essential (primary) hypertension
CPT/HCPCS: 36415; 80053; 84484; 85025; 93005